=== PATIENT | male | born 1990 | race Caucasian/White ===

== ENCOUNTER 2018-08-23 10:03 | Day surgery (SDC) | payer OTHER ==
[2018-08-23] MEDS ORDERED: LIDOCAINE 4% SOLUTION 50 ML BTL (11:45)
[2018-08-23] MEDS ORDERED: MIDAZOLAM 1 MG/ML 2 ML INJ ×2 (12:41)
[2018-08-23] MEDS ORDERED: FENTAnyl 50 MCG/ML VIAL (12:41)
== END 2018-08-23 14:45 | disposition home or self-care (01) ==
LOC: GIL 10:03
DX: K29.30 Chronic superficial gastritis without bleeding (principal)
CPT/HCPCS: 43239; 88305; 88312; 88313